=== PATIENT | female | born 1980 | race Caucasian/White ===

== ENCOUNTER 2023-04-07 17:32 | Emergency (ER) | payer BC, SELFPAY ==
[2023-04-07 17:42] VITALS: BP 121/94; PULSE 85; RESP 16; TEMP 36.6; O2SAT 99
--- NOTE | 2023-04-07 17:51 | ED.URI ---
HPI - URI/Sore Throat General Chief Complaint: Upper Respiratory Infection Stated Complaint: pain in chest; cough; cold for a week Time Seen by Provider: 04/07/23 17:50 Source: patient, RN notes reviewed and old records reviewed Mode of arrival: ambulatory Limitations: no limitations History of Present Illness HPI Narrative: 43 year old female who presents to [facility] care with complaints of cough and congestion since Friday that started with just a tickle in her throat. Patient reports that symptoms seemed to get a little better then on Friday she started with post nasal drainage and congested cough. Patient reports that she can't get any mucous to come up but feels loose in her chest. Patient reports that she has been taking some Claritin with no improvement in her symptoms. Patient reports no fevers,chills or sweats, denies any shortness of breath with respirations even and nonlabored,SAO2 99% on room air, no tachypnea noted. MD elicited complaint: cough, rhinorrhea and nasal congestion Onset (ago): day(s) (6) Pain scale (0-10): 2 Able to tolerate fluids by mouth: Yes Treatments prior to arrival: other (Claritin) Related Data Allergies Allergy/AdvReac Type Severity Reaction Status Date / Time sulfamethoxazole Allergy Unknown Verified 06/16/14 17:12 trimethoprim Allergy Unknown Verified 06/16/14 17:12 Review of Systems Review of Systems: CONSTITUTIONAL: Denies malaise, chills, sweats, or fever. EYES: Denies visual changes, redness, or discharge. ENT: Reports rhinorrhea, congestion, sinus pain, no otalgia and no sore throat. CARDIOVASCULAR: Denies chest pain, palpitations, or edema. RESPIRATORY: Reports cough.? Denies dyspnea. GASTROINTESTINAL: Denies abdominal pain, nausea, vomiting, diarrhea SKIN: Denies rash or itching. MUSCULOSKELETAL: Denies myalgia. NEUROLOGIC: Denies headache. All systems reviewed & are unremarkable except as noted in HPI and below [facility] Surgical History Surgical History (Updated 04/08/23 @ 08:43 by Samanhta Tadeo NP) [facility] Social History Social History (Updated 04/08/23 @ 08:44 by Samantha Tadeo NP) Smoking status: Never smoker Alcohol intake: unknown Substance use type: does not use Living arrangements: with family Gender identity (if verbalized by the patient): Female Comments At time of signature, agree with nursing past medical, surgical, social and family history. There is no relevant family history pertinent to the presenting complaint Exam Narrative: GENERAL: Well-appearing, well-nourished, and in no acute distress. HEAD: Normocephalic EYES: PERRLA, conjunctivae clear ENT: Nares clear, turbinates edematous and erythematous, clear discharge. Mucous membranes moist. TM pearly arias with dull light reflex bilaterally; no tragal tenderness. Oropharynx erythematous without lesions. Tonsils not enlarged and without exudate, no drooling, no hoarseness, no trismus, uvula midline.post nasal drainage NECK: Supple. No lymphadenopathy CHEST: Clear to auscultation, breath sounds equal. No wheezing, rhonchi, rales, or stridor. No respiratory distress, speaks in full sentences.loose cough noted,SAO2 99% on room air HEART: Regular rate and rhythm. No murmur heard. SKIN: Warm, dry, no rash. NEURO: Alert and oriented x3. PSYCH: Normal mood and affect Course Course Emergency Course: Patient is aware of diagnosis, understands and agrees to treatment plan.? Anticipatory guidance given.? Patient agrees to follow-up as directed and is aware of reasons to seek care at the emergency department. Portions of this record may have been created with voice recognition software Level of Care: Express Care Visit Vital Signs Vital signs: Vital Signs Temperature 36.6 C 04/07/23 17:42 Pulse Rate 85 04/07/23 17:42 Respiratory Rate 16 04/07/23 17:42 Blood Pressure 121/94 H 04/07/23 17:42 Pulse Oximetry 99 04/07/23 17:42 Oxygen D
== END 2023-04-07 18:14 | disposition home or self-care (01) ==
PROVIDERS: Emergency Provider Registered Nurse
DX: J06.9 Acute upper respiratory infection, unspecified (principal); R05.9 Cough, unspecified
CPT/HCPCS: 99203; G0463